=== PATIENT | female | born 1955 | race Native Hawaiian/Other Pacific Islander ===

== ENCOUNTER 2018-02-09 16:05 | Observation (INO) | payer OTHER ==
[~2018-02-09] VITALS: Ht 233.7 cm; Wt 51.5 kg
[2018-02-09 16:29] VITALS: BP 171/125; TEMP 97.5
[2018-02-09 16:59] LABS: PLATELET COUNT 304 K/uL (152-353)
[2018-02-09 17:13] LABS: POTASSIUM 3.5 mmol/L (3.6-5.2)
[2018-02-09 17:35] VITALS: BP 160/97
[2018-02-09 19:00] VITALS: BP 133/102
[2018-02-09 19:56] VITALS: BP 120/86
[2018-02-09 23:05] VITALS: BP 149/79; TEMP 97.9; Ht 233.7 cm; Wt 51.5 kg
[2018-02-10] VITALS: BP 181/85; TEMP 98.1
[2018-02-10 04:30] VITALS: BP 144/86; TEMP 97.6
[2018-02-10 05:19] LABS: PLATELET COUNT 265 K/uL (152-353)
[2018-02-10 06:06] LABS: POTASSIUM 3.1 mmol/L (3.6-5.2)
[2018-02-10 08:00] VITALS: BP 160/78; TEMP 97.8
[2018-02-10 12:00] VITALS: BP 178/67; TEMP 98
== END 2018-02-10 16:15 | disposition home or self-care (01) ==
LOC: ED 16:05 → MED/SURG 18:00
DX: R20.2 Paresthesia of skin (principal); M62.81 Muscle weakness (generalized); I10 Essential (primary) hypertension; G56.03 Carpal tunnel syndrome, bilateral upper limbs; E11.9 Type 2 diabetes mellitus without complications; Z79.4 Long term (current) use of insulin
CPT/HCPCS: 36415; 80053; 80061; 83036; 84443; 85027; 93005; 96360; 99220; 99284; G0378; J1815

== ENCOUNTER 2018-02-11 11:59 | Outpatient (CLI) | payer OTHER | END 2018-02-11 22:54 | disposition home or self-care (01) | LOC: RESP 11:59 | DX: G81.94 Hemiplegia, unspecified affecting left nondominant side (principal) | CPT/HCPCS: 93306 ==

== ENCOUNTER 2018-06-28 08:43 | Outpatient (CLI) | payer OTHER ==
[2018-06-28 09:32] LABS: PLATELET COUNT 248 K/uL (152-353)
[2018-06-28 09:59] LABS: POTASSIUM 4.1 mmol/L (3.6-5.2)
== END 2018-06-28 09:43 | disposition home or self-care (01) ==
LOC: LABW 08:43
PROVIDERS: Specialist
DX: R20.9 Unspecified disturbances of skin sensation (principal); E11.9 Type 2 diabetes mellitus without complications
CPT/HCPCS: 36415; 80053; 82306; 82607; 85027; 85651; 86039

== ENCOUNTER 2019-04-21 12:50 | Outpatient (CLI) | payer OTHER | END 2019-04-21 23:03 | disposition home or self-care (01) | LOC: RAD 12:50 | DX: M81.0 Age-related osteoporosis without current pathological fracture (principal) ==

== ENCOUNTER 2019-04-22 11:34 | Outpatient (CLI) | payer OTHER | END 2019-04-22 23:47 | disposition home or self-care (01) | LOC: LABW 11:34 | DX: E55.9 Vitamin D deficiency, unspecified (principal) | CPT/HCPCS: 36415; 82306 ==

== ENCOUNTER 2019-06-25 10:59 | Outpatient (CLI) | payer OTHER | END 2019-06-25 23:59 | disposition home or self-care (01) | LOC: MRI 10:59 | DX: I65.23 Occlusion and stenosis of bilateral carotid arteries (principal) ==

== ENCOUNTER 2021-04-04 10:54 | Outpatient (CLI) | payer OTHER | END 2021-04-04 22:06 | disposition home or self-care (01) | LOC: LABW 10:54 | PROVIDERS: ATTEND Specialist | DX: E55.9 Vitamin D deficiency, unspecified (principal) | CPT/HCPCS: 36415; 82652 ==

== ENCOUNTER 2021-09-14 04:12 | Emergency (ER) | payer OTHER ==
[~2021-09-14] VITALS: Ht 142.2 cm; Wt 47.6 kg
[2021-09-14 04:29] VITALS: TEMP 98.6
[2021-09-14 05:47] VITALS: BP 165/84
== END 2021-09-14 08:46 | disposition home or self-care (01) ==
LOC: ED 04:12
DX: S42.191A Fracture of other part of scapula, right shoulder, initial encounter for closed fracture (principal); W10.8XXA Fall (on) (from) other stairs and steps, initial encounter; Y92.89 Other specified places as the place of occurrence of the external cause
CPT/HCPCS: 99283

== ENCOUNTER 2022-03-27 14:12 | Outpatient (CLI) | payer OTHER | END 2022-03-27 19:05 | disposition home or self-care (01) | LOC: RAD 14:12 | PROVIDERS: ATTEND Nurse Practitioner Primary Care | DX: M25.511 Pain in right shoulder (principal); M25.512 Pain in left shoulder ==

== ENCOUNTER 2022-05-28 10:48 | Outpatient (CLI) | payer OTHER | END 2022-05-28 18:50 | disposition home or self-care (01) | LOC: LAB 10:48 | PROVIDERS: ATTEND Nurse Practitioner Family | DX: R80.9 Proteinuria, unspecified (principal) | CPT/HCPCS: 84156 ==

== ENCOUNTER 2022-06-13 10:00 | Outpatient (CLI) | payer OTHER | END 2022-06-13 18:53 | disposition home or self-care (01) | LOC: RESP 10:00 → US 10:00 → RESP 11:00 → US 18:53 | PROVIDERS: ATTEND Nurse Practitioner Family | DX: E11.65 Type 2 diabetes mellitus with hyperglycemia (principal); I10 Essential (primary) hypertension; R80.8 Other proteinuria; R94.5 Abnormal results of liver function studies ==

== ENCOUNTER 2022-06-26 07:57 | Outpatient (CLI) | payer OTHER ==
[~2022-06-26] VITALS: Ht 137.2 cm; Wt 49.9 kg
== END 2022-06-26 21:32 | disposition home or self-care (01) ==
LOC: NM 07:57
PROVIDERS: ATTEND Nurse Practitioner Family
DX: E11.65 Type 2 diabetes mellitus with hyperglycemia (principal); I10 Essential (primary) hypertension; Z79.899 Other long term (current) drug therapy
CPT/HCPCS: A9500; J2785

== ENCOUNTER 2023-04-22 12:23 | Emergency (ER) | payer OTHER ==
[~2023-04-22] VITALS: Ht 142.2 cm; Wt 45.4 kg
[2023-04-22 12:25] VITALS: TEMP 97.9
[2023-04-22 14:10] VITALS: BP 145/71
== END 2023-04-22 14:10 | disposition home or self-care (01) ==
LOC: ED 12:23
PROC: 0HQDXZZ Repair Right Lower Arm Skin, External Approach (ICD-10-PCS; principal; 2023-04-22)
DX: S50.11XA Contusion of right forearm, initial encounter (principal); S51.851A Open bite of right forearm, initial encounter; S61.257A Open bite of left little finger without damage to nail, initial encounter; S71.152A Open bite, left thigh, initial encounter; W54.0XXA Bitten by dog, initial encounter
CPT/HCPCS: 90715; 99283